=== PATIENT | female | born 1960 | race Hispanic/Latino ===

== ENCOUNTER 2018-05-01 08:34 | Outpatient (CLI) | payer OTHER ==
--- NOTE | 2018-05-01 16:35 | Mammography Report ---
BILATERAL DIGITAL SCREENING MAMMOGRAM with CAD: 05/01/18 08:34:00 CLINICAL: Routine screening. COMPARISON:07/01/14 FINDINGS: The breasts are almost entirely fatty. No mass, architectural distortion or suspicious calcifications. IMPRESSION: No mammographic evidence of malignancy. BI-RADS CATEGORY: 1 - - Negative RECOMMENDATION: Routine mammographic screening in one year. COMMENT: Patient follow-up letters are generated by our [employer] application.
== END 2018-05-01 08:35 | disposition home or self-care (01) ==
LOC: SPVWC 08:34
PROVIDERS: ATTEND Internal Medicine
DX: Z12.31 Encounter for screening mammogram for malignant neoplasm of breast (principal); I10 Essential (primary) hypertension; E13.9 Other specified diabetes mellitus without complications; K21.9 Gastro-esophageal reflux disease without esophagitis; E07.9 Disorder of thyroid, unspecified; Z90.49 Acquired absence of other specified parts of digestive tract
CPT/HCPCS: 77067

== ENCOUNTER 2020-09-28 14:56 | Outpatient (CLI) | payer BC ==
--- NOTE | 2020-09-28 16:38 | Mammography Report ---
DIGITAL SCREENING MAMMOGRAM WITH CAD, 09/28/2020 CLINICAL INFORMATION / INDICATION: Routine screening mammography. TECHNIQUE: Digital bilateral 2D mammography was obtained in the craniocaudal and mediolateral obliqu e projections. This examination was interpreted with the benefit of Computer-Aided Detection analysis . COMPARISON: 05/01/2018 FINDINGS: Breast Density: The breasts are almost entirely fatty. No dominant mass, suspicious calcifications, or architectural distortion in the right breast. In the 12:00 position of the left breast, mid to posterior depth, a new benign-appearing ovoid 6 mm d ensity is seen. This is an approximate 7 cm superior to the nipple. IMPRESSION: New probably benign density on the left Follow up recommendation: Left breast ultrasound BI-RADS Category 0: Incomplete. Needs additional imaging evaluation and/or prior mammograms for kervin edwards. A "normal" or negative report should not discourage follow up or biopsy of a clinically significant f inding. A written summary of these findings will be mailed to the patient. The patient will be entered into a mammography reporting system which will generate a reminder letter for the patient's next appointmen t at the appropriate interval. The [employer] recommends yearly mammograms starting at age 40 and continuing as l rhea as a woman is in good health. Breast MRI is recommended for women with an approximate 20-25% or greater lifetime risk of breast cancer, including women with a strong family history of breast or ova maria guadalupe cancer or who have been treated for Hodgkin's disease. Signer Name: Guanako Banegas MD Signed: 09/28/2020 4:34 PM Workstation Name: [id number]
== END 2020-09-28 14:57 | disposition home or self-care (01) ==
LOC: SPVWC 14:56
PROVIDERS: ATTEND Internal Medicine
DX: Z12.31 Encounter for screening mammogram for malignant neoplasm of breast (principal)
CPT/HCPCS: 77067

== ENCOUNTER 2020-10-09 08:51 | Outpatient (CLI) | payer BC ==
--- NOTE | 2020-10-09 09:44 | Ultrasound Report ---
ULTRASOUND BREAST LEFT LIMITED, 10/09/2020 CLINICAL INFORMATION / INDICATION: ABNORMAL MAMMOGRAM. Patient presents as a callback from screening mammogram for further evaluation of a nodular density in the left breast. TECHNIQUE: Targeted ultrasound evaluation was performed of the area of interest. COMPARISON: Prior mammogram 09/28/2020 FINDINGS: Corresponding with the nodular density seen on recent mammogram, there is a 5 mm benign simple cyst s een in the left breast 12:00 position located 6 cm from the nipple. No suspicious sonographic abnorma lity identified. IMPRESSION: 1. A benign simple cyst accounts for the mammographic finding. No suspicious sonographic abnormality identified. Follow up recommendation: Routine yearly BI-RADS Category 2: Benign. A normal or "negative" report should not preclude biopsy or follow-up of a clinically suspicious find ing. Signer Name: Prachi Lange MD Signed: 10/09/2020 9:40 AM Workstation Name: [id number]
== END 2020-10-09 08:52 | disposition home or self-care (01) ==
LOC: US 08:51
PROVIDERS: ATTEND Internal Medicine
DX: N60.02 Solitary cyst of left breast (principal)

== ENCOUNTER 2021-10-03 09:51 | Outpatient (CLI) | payer BC ==
--- NOTE | 2021-10-04 12:07 | Mammography Report ---
DIGITAL SCREENING MAMMOGRAM WITH CAD, 10/03/2021 CLINICAL INFORMATION / INDICATION: Routine screening mammography. SCREENING TECHNIQUE: Digital bilateral 2D mammography was obtained in the craniocaudal and mediolateral obliqu e projections. This examination was interpreted with the benefit of Computer-Aided Detection analysis . COMPARISON: 12/23/2011 through 09/28/2020. FINDINGS: Breast Density: The breasts are almost entirely fatty. No dominant mass, suspicious calcifications, or architectural distortion in either breast. IMPRESSION: No mammographic evidence of malignancy. Follow up recommendation: Routine yearly BI-RADS Category 1: Negative. A "normal" or negative report should not discourage follow up or biopsy of a clinically significant f inding. A written summary of these findings will be mailed to the patient. The patient will be entered into a mammography reporting system which will generate a reminder letter for the patient's next appointmen t at the appropriate interval. The [employer] recommends yearly mammograms starting at age 40 and continuing as l rhea as a woman is in good health. Breast MRI is recommended for women with an approximate 20-25% or greater lifetime risk of breast cancer, including women with a strong family history of breast or ova maria guadalupe cancer or who have been treated for Hodgkin's disease. Signer Name: Khoa Murphy MD Signed: 10/04/2021 12:02 PM Workstation Name: [id number]
== END 2021-10-03 09:52 | disposition home or self-care (01) ==
LOC: MAMMO 09:51
PROVIDERS: ATTEND Internal Medicine
DX: Z12.31 Encounter for screening mammogram for malignant neoplasm of breast (principal)
CPT/HCPCS: 77067